=== PATIENT | female | born 1945 ===

== ENCOUNTER 2023-12-21 08:00 | Inpatient (IN) | payer OTHER ==
[~2023-12-21] VITALS: Ht 167.6 cm; Wt 87.5 kg
[~2023-12-21 08:00] MED LIST: COZAAR25 MG; NORVASC5 MG
[2023-12-21 09:14] LABS: HEMATOCRIT 44.6 % (36.0-45.00); MEAN CELL VOLUME 88.9 fL (80.00-100.00); MEAN CORPUSCULAR HGB CONC 33.7 g/dl (32.0-36.0); PLATELET COUNT 234 K/uL (150-450); RED BLOOD COUNT 5.01 M/uL (4.00-6.00); RED CELL DISTRIBUTION WIDTH 14.9 % (11.5-14.5)
[2023-12-21 09:27] LABS: URINE APPEARANCE Clear; URINE BILIRRUBIN Negative (NEGATIVE); URINE BLOOD Negative; URINE COLOR Yellow; URINE KETONE Negative (NEGATIVE); URINE LEUKOCYTE Negative; URINE NITRATE Negative; URINE PROTEIN Negative (NEGATIVE); URINE UROBILINOGEN 0.2 E.U./dl
[2023-12-21 09:31] LABS: URINE WBC 10.1 uL (0.0-23.2)
[2023-12-21 09:32] LABS: INR 0.95; PARTIAL THROMBOPLASTIN TIME 28.5 SECONDS (22.0-34.0); PROTHROMBIN TIME 10.4 SECONDS (9.0-11.5)
[2023-12-21 09:33] LABS: URINE EPITHELIAL CELLS 1.2 uL (0.0-38.8); URINE GLUCOSE 500 MG/DL (NEGATIVE)
[2023-12-21 09:50] LABS: ALBUMIN 3.8 gm/dL (3.4-5.0); BILIRUBIN TOTAL 0.5 mg/dL (0.3-1.2); CALCIUM 9.4 mg/dL (8.5-10.1); CHOL HDL RATIO 2.4 (0-5.0); CREATININE SERUM 1.04 mg/dL (0.55-1.02); GFR 51.12; GLOBULINA 3.3 G/DL (2.4-3.5); POTASSIUM 4.28 mEq/L (3.5-5.1); TOTAL PROTEIN 7.1 gm/dL (6.4-8.2)
[2023-12-21 10:38] LABS: RH POSITIVE
[2023-12-28] MEDS ORDERED: CLOTRIMAZOLE45 G1 (11:12)
[2023-12-28] MEDS ORDERED: ESCITALOPRAM OX10 MG (11:12)
[2023-12-28] MEDS ORDERED: DONEPEZIL HCL10 MG (11:12)
[2023-12-28] MEDS ORDERED: AKTOB5 ML (11:12)
[2023-12-28] MEDS ORDERED: FAMOTIDINE20 MG (11:12)
[2023-12-28] MEDS ORDERED: PRED FORTE5 ML (11:12)
[2023-12-28] MEDS ORDERED: ATORVASTATIN CA20 MG (11:13)
[2023-12-28] MEDS ORDERED: AMLODIPINE BESYL5 MG (11:13)
[2023-12-28] MEDS ORDERED: FLONASE16 GM (11:13)
[2023-12-28] MEDS ORDERED: LOSARTAN-HCTZ1 EAC2 (11:13)
[2023-12-28] MEDS ORDERED: JARDIANCE10 MG (11:13)
[2023-12-28] MEDS ORDERED: MELOXICAM15 MG (11:13)
[2023-12-28] MEDS ORDERED: SODIUM CHLORIDE 0.45 % 1,000 ML IV SCH (11:30)
[2023-12-28] MEDS ORDERED: OxyCODONE HCL 5 MG TABLET (ROXICODONE) PO PRN (11:30)
[2023-12-28] MEDS ORDERED: ONDANSETRON HCL 2 MG/ML VIAL IV PRN (11:30)
[2023-12-28] MEDS ORDERED: MORPHINE SULFATE 4 MG/ML CARTRIDGE IV PRN (11:30)
[2023-12-28] MEDS ORDERED: ACETAMINOPHEN 500 MG GEL..CAP PO SCH (12:00)
[2023-12-28 14:02] VITALS: BP 166/92
[2023-12-28 14:59] VITALS: BP 166/92
[2023-12-28 16:00] VITALS: BP 113/56; O2SAT 98
[2023-12-28] MEDS ORDERED: GABAPENTIN 300 MG CAPSULE PO SCH (17:00)
[2023-12-28] MEDS ORDERED: VANCOMYCIN HCL 1,000 MG in 0.9 % SODIUM CHLORIDE 250 ML IV SCH (21:00)
[2023-12-29 00:23] VITALS: BP 126/60; O2SAT 100
[2023-12-29 06:32] LABS: HEMATOCRIT 36.7 % (36.0-45.00); HEMOGLOBIN 12.4 g/dL (12.0-15.00); MEAN CELL VOLUME 88.7 fL (80.00-100.00); MEAN CORPUSCULAR HGB CONC 33.9 g/dl (32.0-36.0); PLATELET COUNT 176 K/uL (150-450); RED BLOOD COUNT 4.14 M/uL (4.00-6.00); RED CELL DISTRIBUTION WIDTH 14.6 % (11.5-14.5)
[2023-12-29] MEDS ORDERED: CIPRO500 MG PO (08:27)
[2023-12-29] MEDS ORDERED: ELIQUIS2.5 MG PO (08:27)
[2023-12-29] MEDS ORDERED: PERCOCET 5-3251 EACH PO (08:27)
[2023-12-29 08:48] VITALS: BP 132/67; O2SAT 99
[2023-12-29] MEDS ORDERED: SENNOSIDES 1 TAB TABLET PO SCH (09:00)
[2023-12-29] MEDS ORDERED: APIXABAN 2.5 MG TABLET PO SCH (09:00)
[2023-12-29] MEDS ORDERED: AMLODIPINE BESYLATE 5 MG TABLET PO SCH (09:00)
[2023-12-29] MEDS ORDERED: LOSARTAN POTASSIUM 25 MG TABLET PO SCH (09:00)
[2023-12-29 16:00] VITALS: BP 120/72; O2SAT 95
[2023-12-29] MEDS ORDERED: VITAMIN B COMPLEX 1 EACH PO SCH (17:00)
[2023-12-29] MEDS ORDERED: SOD FERRIC GLUC COMPLX/SUCROSE 62.5 MG/5 ML AMPUL IV SCH (17:00)
[2023-12-29] MEDS ORDERED: Cyanocobalamin/Mecobalamin 1 TAB.SL SL SCH (17:00)
[2023-12-30 00:38] VITALS: BP 111/53; O2SAT 97
[2023-12-30] MEDS ORDERED: CIPROFLOXACIN HCL 500 MG TABLET PO SCH (05:00)
[2023-12-30 06:27] LABS: HEMATOCRIT 36.7 % (36.0-45.00); HEMOGLOBIN 12.6 g/dL (12.0-15.00); MEAN CORPUSCULAR HEMOGLOBIN 30.5 pg (27.00-32.0); MEAN CORPUSCULAR HGB CONC 34.3 g/dl (32.0-36.0); PLATELET COUNT 177 K/uL (150-450); RED BLOOD COUNT 4.12 M/uL (4.00-6.00); RED CELL DISTRIBUTION WIDTH 14.8 % (11.5-14.5)
[2023-12-30] MEDS ORDERED: IRON FUM,PS/FOLIC ACID/VITC/B3 1 CAP CAPSULE PO SCH (09:00)
[2023-12-30 09:41] VITALS: BP 111/58; O2SAT 99
[2023-12-30] MEDS ORDERED: OxyCODONE HCL/APAP UD (PERCOCET) PO ONE (12:15)
== END 2023-12-30 17:25 | disposition home or self-care (01) | DRG 470 ==
LOC: O/R 12-28 05:45 → SURG 12-28 05:45 → SURH 12-28 08:00 → O/R 12-28 13:10 → SURG 12-28 13:36 → SURH 12-28 14:30 → SURG 12-30 17:25
PROVIDERS: ADMIT Orthopaedic Surgery; ATTEND Orthopaedic Surgery
PROC: 0MNN0ZZ Release Right Knee Bursa and Ligament, Open Approach (ICD-10-PCS; 2023-12-28)
PROC: 0SUC07Z Supplement Right Knee Joint with Autologous Tissue Substitute, Open Approach (ICD-10-PCS; 2023-12-28)
PROC: 0SRC0J9 Replacement of Right Knee Joint with Synthetic Substitute, Cemented, Open Approach (ICD-10-PCS; principal; 2023-12-28 14:30)
DX: M17.11 Unilateral primary osteoarthritis, right knee (principal); M22.11 Recurrent subluxation of patella, right knee